=== PATIENT | female | born 1970 | race Asian ===

== ENCOUNTER 2017-01-19 16:45 | Emergency (ER) | payer OTHER ==
[2017-01-19] MEDS ORDERED: Sodium Chloride 0.9% 10 ML Syringe FLUSH PRN ×2 (17:35→19:57)
[2017-01-19] MEDS ORDERED: Diatrizoate Meglumine/Diatrizoate Sodium 37% 120 ML Bottle PO ONE (19:57)
[2017-01-19] MEDS ORDERED: Iopamidol 612 MG/ML 150 ML Bottle IVPUSH ONE (19:57)
[2017-01-19] MEDS ORDERED: methylPREDNISolone Sodium Succinate 125 MG/2 ML SDV IVPUSH ONE (20:14)
[2017-01-19] MEDS ORDERED: diphenhydrAMINE 50 MG/ML SDV IVPUSH ONE (20:14)
[2017-01-19] MEDS ORDERED: diphenhydrAMINE 50 MG/ML SDV ONE (20:17)
[2017-01-19] MEDS ORDERED: methylPREDNISolone Sodium Succinate 125 MG/2 ML SDV ONE (20:17)
--- NOTE | 2017-01-19 20:34 | CT ---
CT abdomen and pelvis Technique: Multiple axial sections were obtained from the top of the liver inferiorly through the pubic symphysis. Intravenous and oral contrast was utilized. Delayed images were also obtained through the bladder. Comparison: No previous abdominal imaging is available. Findings: Visualized lung bases shows nothing acute. Liver and spleen shows no focal parenchymal abnormality. Adrenal glands show no nodule or mass. Pancreas is within normal limits. Kidney shows symmetric contrast enhancement without hydronephrosis or mass. Aorta shows no aneurysmal dilatation with no retroperitoneal adenopathy or mesenteric abnormalities be seen. Appendix is not visualized. Small cyst is noted within the left ovary measuring 2.8 cm most likely due to dominant follicle. No pelvic mass or adenopathy is seen. No free fluid or inflammatory change is seen within the abdomen or within the pelvis. Delayed images shows contrast within both distal ureters as well as contrast being seen within the bladder. Bone window settings were reviewed which shows mild degenerative change within the spine. Impression: 1. Incidental findings as described above. Nothing acute is appreciated on study of the abdomen and pelvis. Diagnostic code #2
[2017-01-19] MEDS ORDERED: Ketorolac 30 MG/ML SDV IVPUSH ONE (20:46)
--- NOTE | 2017-01-19 21:19 | EDM.PDOC ---
ED HPI GENERAL MEDICAL PROBLEM - General Chief Complaint: Abdominal Pain Stated Complaint: Abdominal pain Time Seen by Provider: 01/19/17 17:25 Source of Information: Reports: Patient, RN Notes Reviewed History Limitations: Reports: No Limitations - History of Present Illness INITIAL COMMENTS - FREE TEXT/NARRATIVE: 47 year old female presents to the ED with complaints of abdominal pain for the past week. The pain has worsened over the past couple days. The pain is mostly on her left side and her back. Her abdomen is tender touch. She is nauseated but no vomiting. She thought she may be constipated so she took milk of magnesia this morning and has had several loose bowel movements since then. She has felt feverish but has not taken her temperature. She denies dysuria, frequency, or burning with urination. She does not believe she's . She has been working out and says her abs are sore. No epigastric pain. No pain associated with food. No previous abdominal surgeries. Left Lower Abdominal Pain Score (Numeric/FACES): 8 - Related Data Allergies Allergy/AdvReac Type Severity Reaction Status Date / Time Iodinated Contrast Media - Allergy Hives Verified 01/19/17 20:18 Oral and Home Meds: Home Meds Ciprofloxacin [IJD: Ciprofloxacin HCl] 500 mg PO BID #14 tab 01/19/17 [Rx] Past Medical History HEENT History: Reports: Impaired Vision Respiratory History: Reports: Other (See Below) Other Respiratory History: "lung tightness" LOCAL COORDINATOR History: Reports: Musculoskeletal History: Reports: Arthritis, Back Pain, Chronic, Other (See Below) Other Musculoskeletal History: bone spurs Psychiatric History: Reports: Anxiety, Depression, PTSD Endocrine/Metabolic History: Reports: Diabetes, Type II Social & Family History - Family History Family Medical History: Noncontributory - Tobacco Use Smoking Status *Q: Never Smoker - Caffeine Use Caffeine Use: Reports: Coffee - Recreational Drug Use Recreational Drug Use: No ED ROS GENERAL - Review of Systems Review Of Systems: See Below Constitutional: Reports: Fever, Chills Respiratory: Reports: No Symptoms. Denies: Shortness of Breath, Cough Cardiovascular: Reports: No Symptoms. Denies: Chest Pain GI/Abdominal: Reports: Abdominal Pain, Constipation, Diarrhea, Distension, Nausea. Denies: Vomiting : Reports: Flank Pain. Denies: Dysuria, Frequency, Urgency ED EXAM, GI/ABD - Physical Exam Exam: See Below Exam Limited By: No Limitations General Appearance: Alert, WD/WN, Mild Distress Respiratory/Chest: No Respiratory Distress, Lungs Clear, Normal Breath Sounds, No Accessory Muscle Use, Chest Non-Tender Cardiovascular: Normal Peripheral Pulses, Regular Rate, Rhythm, No Murmur GI/Abdominal: Normal Bowel Sounds, Soft, No Organomegaly, No Distention, No Mass , Tenderness (LLQ and RLQ on palpation ), Guarding, McBurney's Sign. No: Light 's Sign Back Exam: Normal Inspection, Full Range of Motion, CVA Tenderness (L). No: CVA Tenderness (R) Neurological: Alert, Oriented, Normal Cognition Course - Vital Signs Last Recorded V/S: Last Vital Signs Temp 98.2 F 01/19/17 16:57 Pulse 72 01/19/17 23:07 Resp 16 01/19/17 23:07 BP 96/66 01/19/17 23:07 Pulse Ox 98 01/19/17 23:07 - Orders/Labs/Meds Orders: Active Orders 24 hr Category Date Time Status Peripheral IV Care [RC] . DIRECTED Care 01/19/17 17:36 Active CULTURE URINE [RM] Stat Lab 01/19/17 17:25 Received Peripheral IV Insertion Adult [OM.PC] Stat Oth 01/19/17 17:36 Ordered Labs: Laboratory Tests 01/19/17 01/19/17 01/19/17 Range/Units 17:45 17:45 17:45 WBC 12.21 H (3.98-10.04) K/mm3 RBC 3.91 L (3.98-5.22) M/mm3 Hgb 11.8 (11.2-15.7) gm/L Hct 36.0 (34.1-44.9) % MCV 92.1 (79.4-94.8) fl MCH 30.2 (25.6-32.2) pg MCHC 32.8 (32.2-35.5) g/dl RDW Std Deviation 45.8 (36.4-46.3) fL Plt Count 266 (182-369) K/mm3 MPV 9.6 (9.4-12.3) fl Neutrophils % (Manual) 80 H (40-60) % Band Neutrophils % 0 (0-10) % Lymphocytes % (Manual) 13 L (20-40) % Atypical Lymphs % 4 % Monocytes % (Manual) 3 (2-10) % Eosinophils % (Manual) 0 L (0.7-5.8) % Basophils % (Manual) 0 L (0.1-1.2) Platelet Estimate Adequate Plt Morphology Comment Normal Hypochromasia 1+ slight Poikilocytosis 1+ slight Anisocytosis 1+ slight Microcytosis 1+ slight Macrocytosis 1+ slight Tear Drop Cells 1+ slight Ovalocytes 1+ slight RBC Morph Comment Abnormal Sodium 141 (136-145) mEq/L Potassium 3.7 (3.5-5.1) mEq/L Chloride 104 (98-107) mEq/L Carbon Dioxide 27 (21-32) mEq/L Anion Gap 13.7 (5-15) BUN 13 (7-18) mg/dL Creatinine 0.8 (0.55-1.02) mg/dL Est Cr Clr Drug Dosing 68.02 mL/min Estimated GFR (MDRD) > 60 (>60) mL/min BUN/Creatinine Ratio 16.3 (14-18) Glucose 98 (74-106) mg/dL Calcium 8.5 (8.5-10.1) mg/dL Total Bilirubin 0.3 (0.2-1.0) mg/dL AST 18 (15-37) U/L ALT 22 (14-59) U/L Alkaline Phosphatase 49 (46-116) U/L C-Reactive Protein 1.0 (<1.0) mg/dL Total Protein 7.0 (6.4-8.2) g/dl Albumin 3.4 (3.4-5.0) g/dl Globulin 3.6 gm/dL Albumin/Globulin Ratio 0.9 L (1-2) Urine Color (Yellow) Urine Appearance (Clear) Urine pH (5.0-8.0) Ur Specific Flora (1.005-1.030) Urine Protein (Negative) Urine Glucose (UA) (Negative) Urine Ketones (Negative) Urine Occult Blood (Negative) Urine Nitrite (Negative) Urine Bilirubin (Negative) Urine Urobilinogen (0.2-1.0) Ur Leukocyte Esterase (Negative) Urine RBC (0-5) /hpf Urine WBC (0-5) /hpf Ur Epithelial Cells (0-5) /hpf Urine Bacteria (FEW) /hpf Urine Mucus (FEW) /hpf Urine HCG, Qual (NEGATIVE) H. pylori IgG Antibody Negative (NEGATIVE) 01/19/17 01/19/17 Range/Units 17:45 17:45 WBC (3.98-10.04) K/mm3 RBC (3.98-5.22) M/mm3 Hgb (11.2-15.7) gm/L Hct (34.1-44.9) % MCV (79.4-94.8) fl MCH (25.6-32.2) pg MCHC (32.2-35.5) g/dl RDW Std Deviation (36.4-46.3) fL Plt Count (182-369) K/mm3 MPV (9.4-12.3) fl Neutrophils % (Manual) (40-60) % Band Neutrophils % (0-10) % Lymphocytes % (Manual) (20-40) % Atypical Lymphs % % Monocytes % (Manual) (2-10) % Eosinophils % (Manual) (0.7-5.8) % Basophils % (Manual) (0.1-1.2) Platelet Estimate Plt Morphology Comment Hypochromasia Poikilocytosis Anisocytosis Microcytosis Macrocytosis Tear Drop Cells Ovalocytes RBC Morph Comment Sodium (136-145) mEq/L Potassium (3.5-5.1) mEq/L Chloride (98-107) mEq/L Carbon Dioxide (21-32) mEq/L Anion Gap (5-15) BUN (7-18) mg/dL Creatinine (0.55-1.02) mg/dL Est Cr Clr Drug Dosing mL/min Estimated GFR (MDRD) (>60) mL/min BUN/Creatinine Ratio (14-18) Glucose (74-106) mg/dL Calcium (8.5-10.1) mg/dL Total Bilirubin (0.2-1.0) mg/dL AST (15-37) U/L ALT (14-59) U/L Alkaline Phosphatase (46-116) U/L C-Reactive Protein (<1.0) mg/dL Total Protein (6.4-8.2) g/dl Albumin (3.4-5.0) g/dl Globulin gm/dL Albumin/Globulin Ratio (1-2) Urine Color Yellow (Yellow) Urine Appearance Clear (Clear) Urine pH 7.5 (5.0-8.0) Ur Specific Flora 1.020 (1.005-1.030) Urine Protein Negative (Negative) Urine Glucose (UA) Negative (Negative) Urine Ketones Negative (Negative) Urine Occult Blood Negative (Negative) Urine Nitrite Negative (Negative) Urine Bilirubin Negative (Negative) Urine Urobilinogen 0.2 (0.2-1.0) Ur Leukocyte Esterase 1+ H (Negative) Urine RBC 0-5 (0-5) /hpf Urine WBC 5-10 H (0-5) /hpf Ur Epithelial Cells 0-5 (0-5) /hpf Urine Bacteria Few (FEW) /hpf Urine Mucus Not seen (FEW) /hpf Urine HCG, Qual Negative (NEGATIVE) H. pylori IgG Antibody (NEGATIVE) Meds: Medications Discontinued Medications Generic Name Dose Route Start Last Admin Trade Name Freq PRN Reason Stop Dose Admin Diatrizoate Meglum/Diatrizoate Sod 120 ml 01/19/17 19:57 01/19/17 20:07 Gastrografin 37% PO 01/19/17 19:58 90 ml ONETIME ONE Administration Diphenhydramine HCl 50 mg 01/19/17 20:14 01/19/17 20:16 Benadryl IVPUSH 01/19/17 20:15 50 mg ONETIME ONE Administration Diphenhydramine HCl Confirm 01/19/17 20:17 01/19/17 20:51 Benadryl Administered 01/19/17 20:18 Not Given Dose 50 mg .ROUTE .STK-MED ONE Iopamidol 150 ml 01/19/17 19:57 01/19/17 20:07 Isovue-300 (61%) IVPUSH 01/19/17 19:58 100 ml ONETIME ONE Administration Ketorolac Tromethamine 30 mg 01/19/17 20:46 01/19/17 21:02 Toradol IVPUSH 01/19/17 20:47 30 mg ONETIME ONE Administration Methylprednisolone Sodium Succinate 125 mg 01/19/17 20:14 01/19/17 20:15 Solu-Medrol IVPUSH 01/19/17 20:15 125 mg ONETIME ONE Administration Methylprednisolone Sodium Succinate Confirm 01/19/17 20:17 01/19/17 20:19 Solu-Medrol Administered 01/19/17 20:18 Not Given Dose 125 mg .ROUTE .STK-MED ONE Sodium Chloride 10 ml 01/19/17 17:35 01/19/17 18:04 Saline Flush FLUSH 10 ml ASDIRECTED PRN Administration Keep Vein Open Sodium Chloride 10 ml 01/19/17 19:57 01/19/17 20:08 Saline Flush FLUSH 10 ml ONETIME PRN Administration IV FLUSH - Re-Assessments/Exams Free Text/Narrative Re-Assessment/Exam: Patient refused pain medication initially. Labs drawn. CBC reveals elevated WBC of 12,000 with no bands. CMP is normal. CRP is normal. H Pylori negative. Hcg negative. UA is positive for UTI with 5-10 WBCs and positive leukocytes. I suspected she has a UTI with pyelonephritis since she has left CVA tenderness and a positive UA. Urine culture ordered. After labs were completed, I re- examined her abdomen. She remains tender and guarded upon exam. The amount of pain she is having is not consistent with UTI. Discussed with patient and decided to obtain CT of the abdomen considering her elevated WBC and pain. CT of abdomen/pelvis read by Dr. Hines. No acute findings appreciated. On review of the CT, there is a moderate amount of stool within her colon. This could be contributing to her abdominal discomfort. The patient developed hives immediately following the CT dye. She was treated with Solu-medrol and Benadryl. Her pain seemed to worsen after the CT and she had two bowel movements almost immediately after returning. The pain was described as cramping. She was also given Toradol for pain as she did not want anything sedating. 01/19/172229 The patient was very sleepy from Benadryl. She was monitored in the ED until the sedation improved. She had significant improvement in pain with the Toradol. She was instructed to start her antibiotic in the morning for UTI. Encouraged to return with worsening of symptoms. Instructed to f/u with her PCP this week for recheck. Discharge instructions as documented. Departure - Departure Time of Disposition: 22:41 Disposition: Home, Self-Care 01 Condition: fair Clinical Impression: Abdominal pain of unknown cause UTI (urinary tract infection) Qualifiers: Urinary tract infection type: acute cystitis Hematuria presence: without hematuria Qualified Code(s): N30.00 - Acute cystitis without hematuria Allergic reaction to contrast dye Qualifiers: Encounter type: initial encounter Qualified Code(s): T50.8X5A - Adverse effect of diagnostic agents, initial encounter - Discharge Information Prescriptions: Ciprofloxacin [IJD: Ciprofloxacin HCl] 500 mg PO BID #14 tab Instructions: Drug Allergy, [id number], Urinary Tract Infection, Adult, Easy- to-Read, Abdominal Pain, Adult, [id number] Referrals: Evelyn Peck DO [Primary Care Provider] - Forms: ED Department Discharge Additional Instructions: Drink plenty of fluids Tylenol or Ibuprofen as needed for pain Ciprofloxacin 500m twice a day for 7 days for bladder infection Benadryl 50mg every 4-6 hours as needed for allergy symptoms, itching, or hives Return to ER if your abdominal pain has not improved in 24-48 hours or sooner if worse Follow-up with your primary care provider this week for recheck - My Orders Last 24 Hours: My Active Orders 01/19/17 17:25 CULTURE URINE [RM] Stat 01/19/17 17:36 Peripheral IV Care [RC] . DIRECTED Peripheral IV Insertion Adult [OM.PC] Stat - Assessment/Plan Last 24 Hours: My Active Orders 01/19/17 17:25 CULTURE URINE [RM] Stat 01/19/17 17:36 Peripheral IV Care [RC] . DIRECTED Peripheral IV Insertion Adult [OM.PC] Stat
[2017-01-19 23:14] VITALS: BP 96/66
== END 2017-01-19 23:07 | disposition home or self-care (01) ==
LOC: JD.ED 16:45
DX: N30.00 Acute cystitis without hematuria (principal); L50.9 Urticaria, unspecified; T50.8X5A Adverse effect of diagnostic agents, initial encounter; R10.32 Left lower quadrant pain; Z91.041 Radiographic dye allergy status
CPT/HCPCS: 36415; 74177; 80053; 81001; 81025; 85025; 86140; 86677; 87086; 96374; 96375; 99284; J1200; J1885; J2930; J7050; Q9963; Q9967